=== PATIENT | male | born 2000 | race African-American/Black ===

== ENCOUNTER 2020-04-18 12:14 | Emergency (ER) | payer BC, OTHER ==
[2020-04-18] MEDS ORDERED: ACETAMINOPHEN 650 MG/20.3 ML ORAL SOLUTION (CUPS) ONE (12:20)
[2020-04-18 12:28] VITALS: BP 117/55; PULSE 75; TEMP 100.8; BMI 26.4
[2020-04-18] MEDS ORDERED: ACETAMINOPHEN 650 MG/20.3 ML ORAL SOLUTION (CUPS) PO ONE (12:35)
[2020-04-18 13:00] LABS: THROAT:GRP A STREP ANTIGEN Negative (Negative)
== END 2020-04-18 13:20 | disposition home or self-care (01) ==
LOC: FER 12:14
DX: J06.9 Acute upper respiratory infection, unspecified (principal)
CPT/HCPCS: 87070; 87077; 87880; 99284-25; C9803; U0003